=== PATIENT | male | born 1985 | race Caucasian/White ===

== ENCOUNTER → 2019-12-22 | Outpatient (CLI) | payer OTHER ==
--- NOTE | 2019-12-23 08:18 | REPVR ---
PROCEDURE INFORMATION: Exam: MR Lumbar Spine Without Contrast. Exam date and time: 12/22/2019 5:23 PM Age: 34 years old Clinical indication: Low back pain; Additional info: Lbp TECHNIQUE: Imaging protocol: Multiplanar magnetic resonance images of the lumbar spine without intravenous contrast. COMPARISON: MRI-Spine, L.S. without con 07/03/2013 6:02 PM FINDINGS: Vertebrae: Unremarkable. Spinal cord: Normal signal. No cord compression. L1-L2: No significant disc disease. No significant spinal canal stenosis. No neural foraminal stenosis. L2-L3: No significant disc disease. No significant spinal canal stenosis. No neural foraminal stenosis. L3-L4: No significant disc disease. No significant spinal canal stenosis. No neural foraminal stenosis. L4-L5: Disc desiccation, mild diffuse disc bulge with bilateral facet joint arthropathy and ligamentum flavum hypertrophy without any significant central spinal canal stenosis or neural foraminal narrowing. L5-S1: Mild diffuse disc bulge with tiny central disc protrusion without any significant central spinal canal stenosis or neural foraminal narrowing. Soft tissues: Unremarkable. IMPRESSION: No acute finding. L4-L5: Disc desiccation, mild diffuse disc bulge with bilateral facet joint arthropathy and ligamentum flavum hypertrophy without any significant central spinal canal stenosis or neural foraminal narrowing. L5-S1: Mild diffuse disc bulge with tiny central disc protrusion without any significant central spinal canal stenosis or neural foraminal narrowing. Electronically signed by: Shanika Stallworth On 12/23/2019 08:18:19 AM
== END ==
LOC: M RAD 15:59
PROVIDERS: ATTEND Physician Assistant
DX: M54.5 Low back pain (principal)